=== PATIENT | male | born 1990 | race Native Hawaiian/Other Pacific Islander ===

== ENCOUNTER 2016-12-30 01:03 | Emergency (ER) | payer SELFPAY ==
[2016-12-30 01:22] VITALS: TEMP 97.8
--- NOTE | 2016-12-30 01:57 | ED PDOC ---
HPI: Psych/Substance Abuse Time Seen by Provider: 12/30/16 01:18 Chief Complaint (Nursing): Alcohol Ingestion Chief Complaint (Provider): alcohol intoxication ED Caveat: Intoxicated History Per: Patient History/Exam Limitations: intoxication Onset/Duration Of Symptoms: Mins Current Symptoms Are (Timing): Still Present Additional Complaint(s): 26yo male presents to the ED via EMS for evaluation of alcohol intoxication. [place] and brought to ED for evaluation. Hx limited due to patient's intoxicated state. Denies any medical complaints. Past Medical History Reviewed: Historical Data, Nursing Documentation, Vital Signs, Unable To Obtain (due to intoxication ) Vital Signs: Last Vital Signs Temp 97.8 F 12/30/16 01:18 Pulse 81 12/30/16 01:18 Resp 18 12/30/16 01:18 BP 130/84 12/30/16 01:18 Pulse Ox 98 12/30/16 01:18 - Family History Family History: States: No Known Family Hx - Allergies Allergies/Adverse Reactions: Allergies Allergy/AdvReac Type Severity Reaction Status Date / Time No Known Allergies Allergy Verified 12/30/16 01:18 Review of Systems Review Of Systems: ROS cannot be obtained secondary to pt's inabilty to answer questions. (due to intoxication) Physical Exam - Reviewed Nursing Documentation Reviewed: Yes Vital Signs Reviewed: Yes - Physical Exam Appears: Positive for: Well, No Acute Distress Head Exam: Positive for: ATRAUMATIC, NORMAL INSPECTION, NORMOCEPHALIC Skin: Positive for: Normal Color, Warm, Dry Eye Exam: Positive for: Normal appearance ENT: Positive for: Normal ENT Inspection Neck: Positive for: Normal, Painless ROM, Supple Cardiovascular/Chest: Positive for: Regular Rate, Rhythm. Negative for: Tachycardia Respiratory: Positive for: Normal Breath Sounds. Negative for: Respiratory Distress Gastrointestinal/Abdominal: Positive for: Normal Exam, Soft. Negative for: Tenderness Back: Positive for: Normal Inspection Extremity: Positive for: Normal ROM. Negative for: Deformity, Swelling Neurologic/Psych: Positive for: Alert, Oriented, Other (speech slurred ) - Laboratory Results Result Diagrams: 12/30/16 01:59 12/30/16 01:59 - ECG O2 Sat by Pulse Oximetry: 98 Pulse Ox Interpretation: Normal (RA) Medical Decision Making Medical Decision Makin: Impression: 26yo intoxicated male Plan: Labs accucheck reassess 0258: Patient is clinically sober and stable for d/c. Requesting to take an uber home. Dx: alcohol intoxication condition: stable Scribe Attestation: Documented by Ericka Traylor acting as a scribe for Ashkan Lomas MD. Provider Scribe Attestation: All medical record entries made by the Scribe were at my direction and personally dictated by me. I have reviewed the chart and agree that the record accurately reflects my personal performance of the history, physical exam, medical decision making, and the department course for this patient. I have also personally directed, reviewed, and agree with the discharge instructions and disposition. Disposition - Clinical Impression Clinical Impression: Alcohol intoxication - Patient ED Disposition Is Patient to be Admitted: No - Disposition Disposition: Routine/Home Disposition Time: 02:58 Condition: STABLE Instructions: Alcohol Intoxication (ED)
[2016-12-30 02:02] LABS: BASO % 0.3 % (0.0-2.0); EOS % 0.2 % (0.0-4.0); HEMATOCRIT 43.7 % (35.0-51.0); LYMPH # 1.5 K/uL (1.0-4.3); LYMPH % 12.5 % (20.0-40.0); MEAN CELL VOLUME 92.4 fl (80.0-94.0); MEAN CORPUSCULAR HEMOGLOBIN 30.8 pg (27.0-31.0); MEAN CORPUSCULAR HGB CONC 33.4 g/dL (33.0-37.0); MEAN PLATELET VOLUME 7.8 fl (7.2-11.7); MONO # 0.4 K/uL (0.0-0.8); MONO % 3.2 % (0.0-10.0); NEUT # 10.3 K/uL (1.8-7.0); NEUT % 83.8 % (50.0-75.0); WHITE BLOOD COUNT 12.3 K/uL (4.8-10.8)
[2016-12-30 02:10] LABS: CHLORIDE 108 mmol/L (98-107); POTASSIUM 3.6 MMOL/L (3.6-5.0); SODIUM 145 mmol/l (132-148)
[2016-12-30 02:12] LABS: GFR AFRICAN-AMERICAN > 60
[2016-12-30 02:13] LABS: ALB/GLOB RATIO 1.6 (1.0-2.1); ALKALINE PHOSPHATASE 49 U/L (38-126); ALT/SGPT 31 U/L (21-72); AST/SGOT 24 U/L (17-59); BILIRUBIN,TOTAL 0.5 mg/dl (0.2-1.3); BLOOD UREA NITROGEN 12 mg/dl (9-20); CALCIUM 8.6 mg/dL (8.4-10.2); CARBON DIOXIDE 20 mmol/L (22-30); GLUCOSE,RANDOM 99 mg/dL (75-110); TOTAL PROTEIN 7.1 G/DL (6.3-8.2)
[2016-12-30 02:14] LABS: ALCOHOL SERUM 217 mg/dl (0-10)
[2016-12-30 03:18] VITALS: BP 126/74; PULSE 82; RESP 17
[2016-12-30 04:58] VITALS: O2SAT 98
== END 2016-12-30 03:00 | disposition home or self-care (01) ==
LOC: H.ER 01:03
DX: F10.129 Alcohol abuse with intoxication, unspecified (principal)
CPT/HCPCS: 80053; 85025; 99282; G0480